=== PATIENT | male | born 1960 | race Caucasian/White ===

== ENCOUNTER → 2016-05-16 | Outpatient (CLI) | payer BC | LOC: LAB 06:43 | PROVIDERS: ATTEND Nurse Practitioner Family | DX: E29.1 Testicular hypofunction (principal) | CPT/HCPCS: 36415; 84403 ==

== ENCOUNTER 2016-06-19 17:50 | Emergency (ER) | payer BC ==
[2016-06-19] MEDS ORDERED: EPINEPHrine 1:10,000 (0.1 MG/ML) 1 MG/10 ML SYR IV ONE (18:00)
[2016-06-19 20:11] LABS: CANNABINOID SCREEN,URINE NEGATIVE (NEG); COCAINE SCREEN NEGATIVE (NEG); METHAMPHETAMINES SCREEN,URINE NEGATIVE (NEG); URINE SAMPLE TYPE CATH SPECIMEN; URINE SPECIFIC GRAVITY - MAN 1.005
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
== END 2016-06-19 19:38 | disposition expired ==
LOC: ER 17:50
DX: S01.80XA Unspecified open wound of other part of head, initial encounter (principal); Y22.XXXA Handgun discharge, undetermined intent, initial encounter
CPT/HCPCS: 80305; 92950; 99291 ×2; J0171; P9016; J7030